=== PATIENT | male | born 1975 | race Asian ===

== ENCOUNTER 2023-11-20 19:29 | Emergency (ER) | payer SELFPAY ==
[~2023-11-20] VITALS: Ht 162.6 cm; Wt 68.0 kg
[2023-11-20 19:39] VITALS: BP 155/88; PULSE 98; RESP 20; TEMP 98
== END 2023-11-20 21:00 | disposition left against medical advice (07) ==
LOC: EMS 19:31
DX: F41.9 Anxiety disorder, unspecified (principal); Z53.21 Procedure and treatment not carried out due to patient leaving prior to being seen by health care provider
CPT/HCPCS: 93005; 99281; Z7502